=== PATIENT | female | born 1965 | race Two or more races ===

== ENCOUNTER 2017-06-17 13:26 | Outpatient (CLI) | payer BC ==
[~2017-06-17 13:26] MED LIST: no medication
[2017-06-17 13:50] VITALS: BP 106/80
--- NOTE | 2017-06-17 14:31 | GI Progress Note ---
Assessment/Plan Problems: (1) Constipation ICD Codes: K59.00 - Constipation, unspecified SNOMED: 70161922 (2) Rectal pain ICD Codes: K62.89 - Other specified diseases of anus and rectum SNOMED: 88958157 (3) Family history of colon cancer in father ICD Codes: Z80.0 - Family history of malignant neoplasm of digestive organs SNOMED: 128807840, 558516052 (4) Rectal bleeding ICD Codes: K62.5 - Hemorrhage of anus and rectum SNOMED: 37801551 Status: unchanged Status Narrative Seen with Dr. Field. Assessment/Plan history of familial colon cancer >> father side will scheduled colonoscopy pending prior authorization - CLD & NPO day prior procedure instructions given and acknowledged - patient elected for conscious sedation constipation >> add stool softener and increase fiber in diet rx anusol HC will contact patient to schedule procedure date Subjective Subjective f/u patient from last year still c/o of rectal bleeding/rectal pain constipation father had passed from colon cancer at age 75 denies any weight change Objective Last 24 Hour Vital Signs Date Time Temp Pulse Resp B/P (MAP) Pulse Ox O2 Delivery O2 Flow Rate FiO2 06/17/17 13:50 98.1 63 16 106/80 General Appearance: no apparent distress, alert Cardiovascular: normal rate Respiratory/Chest: normal breath sounds, no respiratory distress Abdominal Exam: normal bowel sounds, non tender, soft Extremities: non-tender Yanique Arredondo N.P. Jun 17, 2017 14:31
== END 2017-06-17 14:00 | disposition home or self-care (01) ==
LOC: PAN 13:26
DX: K59.00 Constipation, unspecified (principal); K62.89 Other specified diseases of anus and rectum; Z80.0 Family history of malignant neoplasm of digestive organs; K62.5 Hemorrhage of anus and rectum
CPT/HCPCS: 99211

== ENCOUNTER 2017-07-10 08:23 | Day surgery (SDC) | payer BC ==
[2017-07-10] VITALS (18 sets, daily range): BP systolic 108–145; BP diastolic 65–92
[~2017-07-10] VITALS: Ht 162.6 cm; Wt 63.5 kg
[2017-07-10] MEDS ORDERED: fentaNYL 100 mcg/2 mL IV ONE (09:15)
[2017-07-10] MEDS ORDERED: Midazolam 2mg/2ml Inj IVP ONE (09:15)
--- NOTE | 2017-07-10 09:30 | Short Stay Surgery H&P ---
History of Present Illness History of Present Illness Chief Complaint SEE RECENT CONSULT NOTE HPI Ivelisse Juarez is a 51 year old female who was admitted on for Rectal Bleeding Patient History Allergies: Coded Allergies: No Known Allergies (Unverified , 03/28/16) PAST MEDICAL HISTORY: Past Surgeries: Relevant Family History: Colon cancer in father Social History: Medication History Miscellaneous Medications [no medication ], (Reported) Physical Exam Vital Signs Last Vital Signs Date Time Temp Pulse Resp B/P (MAP) Pulse Ox O2 Delivery O2 Flow Rate FiO2 07/10/17 09:02 97.2 73 20 115/77 96 Room Air Labs Laboratory Tests Test 07/10/17 08:45 Urine HCG, Qualitative Negative Plan Attestation Are the patient's medical conditions optimized for surgery? CHARLOTTE PAL Jul 10, 2017 09:30
--- NOTE | 2017-07-10 09:30 | Pre-Procedure Note/Attestation ---
Pre-Procedure Note/Attestation Complete Prior to Procedure Planned Procedure: not applicable Procedure Narrative: COLONOSCOPY Indications for Procedure Pre-Operative Diagnosis: RECTAL BLEED Attestation I attest that I discussed the nature of the procedure; its benefits; risks and complications; and alternatives (and the risks and benefits of such alternatives ), prior to the procedure, with the patient (or the patient's legal technical services representative). I attest that, if there was a reasonable possibility of needing a blood transfusion, the patient (or the patient's legal technical services representative) was given the [facility] standardized written summary, pursuant to the Sathya Jason Blood Safety Act ([place] Health and Safety Code # 1645, as amended). I attest that I re-evaluated the patient just prior to the surgery and that there has been no change in the patient's H&P, except as documented below: CHARLOTTE PAL Jul 10, 2017 09:30
--- NOTE | 2017-07-10 09:43 | Moderate Sedation - Procedural ---
Moderate Sedation HPI Home Medication Reported Medications [no medication ] No Conflict Check 03/28/16 Patient History Allergies: Coded Allergies: No Known Allergies (Unverified , 03/28/16) PAST MEDICAL HISTORY: Past Surgeries: Relevant Family History: Colon cancer in father Social History: Pre-Procedural Mod Sedation Date: Jul 10, 2017 Pre-Assessment Time: 09:00 Pre-Sedation Assessment: Elective Airway Assessment (Malampati): II Heart: normal Lungs: normal Abdomen: normal Extremities: normal Pre-op Diagnosis: RECTAL BLEED Evaluation Hx of untoward rxns to mod sed: No Procedures/Plans: Colonoscopy Plan for Moderate Sedation: Midazolam, Fentanyl ASA Score: I Informed Consent The nature of the procedure/sedation; its benefits; risks and complications; and alternatives (and the risks and benefits of such alternatives) were discussed with the patient (or their legal banking representative), prior to the procedure. All questions were answered to the patient's (or their legal banking representative's) satisfaction and the patient (or their legal banking representative) gave informed consent to the procedure. I attest that I re-evaluated the patient just prior to the surgery and that there has been no change in the patient's H&P, except as documented below: Post Procedure Assessment Post Procedure TIme: 10:12 Communication: No Apparent Limitation Mental Status: Awake Respiration: Unlabored Skin Condition: WNL Adomen: WNL Nausea: NO Vomiting: NO CHARLOTTE PAL Jul 10, 2017 09:43
--- NOTE | 2017-07-10 10:11 | Endoscopy Procedure Note ---
Endoscopy Procedure Note Indication for Procedure: RECTAL BLEED Procedures Performed: colonoscopy Operative Findings/Diagnosis: ONE POLYP Specimen: yes Pt Tolerated Procedure Well: Yes Estimated Blood Loss: none Anesthesiologist: NONE Anesthesia: moderate sedation Medication Given: midazolam, fentanyl Implant(s) used?: No 50 yrs or older w/o bx or poly: No 10yrs. F/U not recommended: Yes If not recommended, why?: Above average risk 10 yrs. F/U needed: Yes 18 years or older w/prev. colo: No CHARLOTTE PAL Jul 10, 2017 10:11
--- NOTE | 2017-07-10 16:00 | Procedure Note ---
DATE OF PROCEDURE: 07/10/2017 PROCEDURE: Colonoscopy with snare polypectomy. SURGEON: Pérez Field M.D. ANESTHESIA: A 6 mg of Versed and 100 mcg of Fentanyl IV. INDICATION: Rectal bleeding. REASON FOR PROCEDURE: The procedure, risks, benefits, and possible consequences, including hemorrhage, aspiration, perforation and infection, and alternative treatments, were explained to the patient/legal guardian by Dr. Pérez Field and the patient/legal guardian understood and accepted these risks. PROCEDURE: After informed consent was consent was obtained and the patient was adequately sedated, first rectal exam was performed, which was positive for internal hemorrhoids. Then, the scope was advanced from the rectum into the cecum, the appendix orifice, ileocecal valve, and upper quadrant palpation. Quality of prep was very good. The patient had a sessile polyp in the cecum, roughly measured about 7 mm removed with the cold snare polypectomy technique. The rest of the examination was within normal limit. Retroflexion of rectum showed some internal hemorrhoids. SUMMARY FINDINGS: 1. Colonic polyp removed, see above for details. 2. Internal hemorrhoids. RECOMMENDATIONS: Depending on pathology of the biopsy, we will decide 3 years versus 5 years colonoscopy. Pérez Field M.D. DR: MURPHY JOB#: [id number] CC:
--- NOTE | 2017-07-11 16:43 | Cardiology Report ---
APPROVED REPORT EKG Measurement Heart [id number] 158P45 [id number] Normal sinus rhythm Normal ECG
== END 2017-07-10 11:50 | disposition home or self-care (01) ==
LOC: GAS 08:23
DX: K64.8 Other hemorrhoids (principal); K63.5 Polyp of colon
CPT/HCPCS: 45380; 81025; 93005; J2250; J3010

== ENCOUNTER 2017-07-30 10:19 | Outpatient (CLI) | payer BC ==
--- NOTE | 2017-08-01 13:18 | GI Progress Note ---
Assessment/Plan Problems: (1) Constipation ICD Codes: K59.00 - Constipation, unspecified SNOMED: 15617311 (2) Family history of colon cancer in father ICD Codes: Z80.0 - Family history of malignant neoplasm of digestive organs SNOMED: 845520169, 141372158 Status: stable Status Narrative Seen with Dr. Field. Assessment/Plan SUMMARY FINDINGS: 1. Colonic polyp removed, see above for details. 2. Internal hemorrhoids. pathology reviewed >> sessile serrated adenoma RECOMMENDATIONS: RTC prn repeat colonoscopy x 5 years Subjective Gastrointestinal/Abdominal: Reports: no symptoms Subjective here for colonoscopy review Objective T 98.0 BP 107/69 P 68 99 RA Denies any unintentional weight loss or changes in dietary habits. General Appearance: WD/WN, no apparent distress, alert Cardiovascular: normal rate Respiratory/Chest: normal breath sounds, no respiratory distress Abdominal Exam: normal bowel sounds, non tender, soft Extremities: normal range of motion, non-tender Yanique Arredondo N.P. Aug 01, 2017 13:18
== END 2017-07-30 11:20 | disposition home or self-care (01) ==
LOC: PAN 10:19
DX: K59.00 Constipation, unspecified (principal); Z80.0 Family history of malignant neoplasm of digestive organs; K63.5 Polyp of colon; K64.8 Other hemorrhoids
CPT/HCPCS: 99211